=== PATIENT | female | born 1995 | race Caucasian/White ===

== ENCOUNTER 2019-01-22 09:14 | Emergency (ER) | payer SELFPAY, OTHER | END 2019-01-22 10:32 | disposition left against medical advice (07) | LOC: FTE 10:32 | DX: Z53.21 Procedure and treatment not carried out due to patient leaving prior to being seen by health care provider (principal) ==

== ENCOUNTER 2019-02-22 18:56 | Emergency (ER) | payer SELFPAY ==
[2019-02-22] MEDS: ACETAMINOPHEN 325 MG TAB PO (20:35)
== END 2019-02-22 22:45 | disposition left against medical advice (07) ==
LOC: FTE 22:45
DX: S50.812A Abrasion of left forearm, initial encounter (principal); S50.811A Abrasion of right forearm, initial encounter; V49.40XA Driver injured in collision with unspecified motor vehicles in traffic accident, initial encounter
CPT/HCPCS: 81025; 99282